=== PATIENT | male | born 1990 ===

== ENCOUNTER 2021-08-13 08:28 | Emergency (ER) | payer SELFPAY ==
[2021-08-13 08:36] VITALS: BP 128/76
[2021-08-13] MEDS ORDERED: ALUM-MAG HYDROXIDE-SIMETHICONE 200-200-20MG/5ML ORAL LIQD 30 ML PO ONE (12:00)
[2021-08-13] MEDS ORDERED: HYOSCYAMINE SUBL 0.125 MG TAB SL ONE (12:01)
[2021-08-13] MEDS ORDERED: FAMOTIDINE 20 MG TAB PO ONE (12:01)
--- NOTE | 2021-08-13 12:05 | Emergency Department Report ---
ED Abdominal Pain HPI - General Chief Complaint: Abdominal Pain Stated Complaint: ABDOMINAL PAIN Time Seen by Provider: 08/13/21 12:00 Source: patient Mode of arrival: Ambulatory Limitations: No Limitations - History of Present Illness Initial Comments: Patient is a 30-year-old male presents emergency room complaints of epigastric abdominal pain that began this morning when he woke up. He reports that his pain has improved now. He states he has had this intermittently over the last 3 years but has never seen anyone for it. He reports it is worse after eating. He denies any nausea, vomiting, diarrhea, fever, urinary symptoms. He states he is having normal bowel movements and had one this morning. He denies any hematochezia, melena, hematemesis. Past medical history of asthma. No allergies to medications. He denies any past abdominal surgical history. He states he is a non-smoker and nondrinker. - Related Data Previous Rx's Medication Instructions Recorded Last Taken Type Famotidine [Pepcid] 40 mg PO QHS #30 tablet 08/13/21 Unknown Rx Sucralfate [Carafate] 1 gm PO ACHS 7 Days #21 tablet 08/13/21 Unknown Rx Allergies Allergy/AdvReac Type Severity Reaction Status Date / Time [place] Allergy Intermediate Itching Verified 08/13/21 08:33 ED Review of Systems ROS: Stated complaint: ABDOMINAL PAIN Other details as noted in HPI Comment: All other systems reviewed and negative ED Past Medical Hx - Medications Home Medications: Home Medications Medication Instructions Recorded Confirmed Last Taken Type Famotidine [Pepcid] 40 mg PO QHS #30 tablet 08/13/21 Unknown Rx Sucralfate [Carafate] 1 gm PO ACHS 7 Days #21 tablet 08/13/21 Unknown Rx ED Physical Exam - General Limitations: No Limitations General appearance: alert, in no apparent distress - Head Head exam: Present: atraumatic, normocephalic - Eye Eye exam: Present: normal appearance - ENT ENT exam: Present: mucous membranes moist - Respiratory Respiratory exam: Present: normal lung sounds bilaterally. Absent: respiratory distress, wheezes, rales, rhonchi, stridor, chest wall tenderness, accessory muscle use, decreased breath sounds, prolonged expiratory - Cardiovascular Cardiovascular Exam: Present: regular rate, normal rhythm, normal heart sounds. Absent: systolic murmur, diastolic murmur, rubs, gallop - GI/Abdominal GI/Abdominal exam: Present: soft, normal bowel sounds. Absent: distended, tende rness, guarding, rebound, rigid - Neurological Exam Neurological exam: Present: alert, oriented X3 - Psychiatric Psychiatric exam: Present: normal affect, normal mood - Skin Skin exam: Present: warm, dry, intact ED Course Vital Signs 08/13/21 08:34 Temperature 98.5 F Pulse Rate 54 L Respiratory 16 Rate Blood Pressure 128/76 O2 Sat by Pulse 96 Oximetry ED Medical Decision Making - Lab Data Result diagrams: 08/13/21 12:55 08/13/21 12:55 - Medical Decision Making Patient is a 30-year-old male presents emergency room complaints of epigastric abdominal pain that began this morning when he woke up. He reports that his pain has improved now. He states he has had this intermittently over the last 3 years but has never seen anyone for it. He reports it is worse after eating. He denies any nausea, vomiting, diarrhea, fever, urinary symptoms. He states he is having normal bowel movements and had one this morning. He denies any hematochezia, melena, hematemesis. Past medical history of asthma. No allergies to medications. He denies any past abdominal surgical history. He states he is a non-smoker and nondrinker. Vitals are stable. No abdominal tenderness on exam, no guarding, no rebound, no rigidity, normal bowel sounds, no peritoneal signs. Labs are stable. No leukocytosis, normal LFTs, normal li pase. Patient given p.o. medications while in the emergency department with resolution of his symptoms. Symptoms could likely be related to PUD versus GERD. Patient given prescription for medication and discussed lifestyle modifications. Advised patient please take medication as prescribed. Increase your water intake. Follow-up with your primary care doctor. Follow-up with a GI doctor. Return to emergency room for any new or worsening symptoms. Critical care attestation.: If time is entered above; I have spent that time in minutes in the direct care of this critically ill patient, excluding procedure time. ED Disposition Clinical Impression: Abdominal pain Qualifiers: Abdominal location: epigastric Qualified Code(s): R10.13 - Epigastric pain Disposition: HOME / SELF CARE / HOMELESS Is pt being admited?: No Does the pt Need Aspirin: No Condition: Stable Instructions: Abdominal Pain, Adult, Food Choices for Gastroesophageal Reflux Disease, Adult Additional Instructions: please take medication as prescribed. Increase your water intake. Follow-up with your primary care doctor. Follow-up with a GI doctor. Return to emergency room for any new or worsening symptoms. Prescriptions: Famotidine [Pepcid] 40 mg PO QHS #30 tablet Sucralfate [Carafate] 1 gm PO ACHS 7 Days #21 tablet Referrals: NABIL GODFREY MD [Primary Care Provider] - 3-5 Days [facility] [Provider Group] - 3-5 Days DEB PAEZ MD [Staff Physician] - 3-5 Days [facility] [Provider Group] - 3-5 Days Time of Disposition: 14:07 Print Language: BURMESE
[2021-08-13 13:37] LABS: Basophils % (Auto) 0.8 % (0.0-1.8); Eosinophils # (Auto) 0.1 K/mm3 (0.0-0.4); Hematocrit 43.6 % (35.5-45.6); Hemoglobin 13.4 gm/dl (11.8-15.2); Lymphocytes # (Auto) 2.4 K/mm3 (1.2-5.4); Lymphocytes % (Auto) 42.7 % (13.4-35.0); Mean Corpuscular HGB Conc 31 % (32-34); Mean Corpuscular Volume 83 fl (84-94); Monocytes # (Auto) 0.4 K/mm3 (0.0-0.8); Monocytes % (Auto) 6.8 % (0.0-7.3); Platelet Count 287 K/mm3 (140-440); Red Blood Count 5.27 M/mm3 (3.65-5.03); Red Cell Distribution Width 13.7 % (13.2-15.2)
[2021-08-13 14:01] LABS: Alanine Aminotransferase 23 units/L (7-56); BUN/Creatinine Ratio 11; Blood Urea Nitrogen 9 mg/dL (9-20); Hemolysis Index 17
== END 2021-08-13 14:21 | disposition home or self-care (01) ==
LOC: ED 08:28
DX: R10.13 Epigastric pain (principal); Z91.018 Allergy to other foods; Z79.899 Other long term (current) drug therapy
CPT/HCPCS: 36415; 80053; 83690; 85025; 99283